=== PATIENT | female | born 1945 | race Caucasian/White ===

== ENCOUNTER 2025-04-14 06:02 | Day surgery (SDC) | payer MEDICARE, OTHER, SELFPAY ==
[2025-04-14 11:35] VITALS: BMI 23.0
[2025-04-14 11:40] VITALS: BP 184/75
[2025-04-14 11:50] VITALS: BMI 23.0
[2025-04-14] MEDS: NORMOSOL-R/PLASMALYTE-A 1000 IV (11:56)
[2025-04-14 12:18] LABS: Hematocrit 34.4 % (37.0-47.0); Hemoglobin 11.6 g/dL (12.0-16.0); Mean Corp Hgb Conc. 33.7 g/dL (33.0-37.0); Mean Corpuscular Hgb 30.9 pg (27.0-31.0); Mean Corpuscular Volume 91.7 fL (81.0-99.0); Mean Platelet Volume 11.1 fL (7.4-10.4); Platelet Count 187 10^3/uL (130-400); Red Blood Cell Count 3.75 10^6/uL (4.20-5.40); Red Cell Dist. Width 14.9 % (11.5-14.5)
[2025-04-14 13:32] VITALS: BP 122/45
[2025-04-14 13:47] VITALS: BP 136/47
[2025-04-14 14:00] VITALS: BP 126/41
[2025-04-14 14:15] VITALS: BP 122/52
[2025-04-14 14:30] VITALS: BP 137/55
== END 2025-04-14 14:51 | disposition home or self-care (01) ==
LOC: SDS 06:02
PROVIDERS: Student in an Organized Health Care Education/Training Program; ATTENDING PHYSICIAN Surgery
DX: K64.9 Unspecified hemorrhoids (principal); K64.3 Fourth degree hemorrhoids; C21.0 Malignant neoplasm of anus, unspecified
CPT/HCPCS: 46255; 88304; 85027; 88342

== ENCOUNTER → 2025-05-10 11:27 | Outpatient (REF) | payer MEDICARE, OTHER, SELFPAY ==
[2025-05-10 12:45] LABS: Blood Urea Nitrogen 13 mg/dl (7-17); Calcium 9.7 mg/dl (8.4-10.2); Carbon Dioxide 24 mmol/L (22-30); Chloride 112 mmol/L (98-107); Glucose 89 mg/dl (70-99); Potassium 4.5 mmol/L (3.5-5.1); Sodium 141 mmol/L (135-145); eGFR > 60.00
== END ==
LOC: REG 11:27
PROVIDERS: ATTENDING PHYSICIAN Surgery; FAMILY PHYSICIAN Family Medicine
DX: Z01.812 Encounter for preprocedural laboratory examination (principal)
CPT/HCPCS: 36415; 80048

== ENCOUNTER → 2025-05-13 11:45 | Outpatient (REF) | payer MEDICARE, OTHER, SELFPAY | LOC: RAD 11:45 | PROVIDERS: ATTENDING PHYSICIAN Surgery; FAMILY PHYSICIAN Family Medicine | DX: C21.0 Malignant neoplasm of anus, unspecified (principal) | CPT/HCPCS: 71260; 74177; Q9967 ==